=== PATIENT | female | born 1980 | race Caucasian/White ===

== ENCOUNTER 2019-10-07 09:09 | Emergency (ER) | payer OTHER ==
[~2019-10-07] VITALS: Ht 149.9 cm; Wt 84.9 kg
[2019-10-07 09:17] VITALS: Ht 149.9 cm; Wt 84.9 kg
[2019-10-07 11:02] LABS: UA SPECIFIC GRAVITY 1.025 (1.005-1.035); urine erythrocyte NEGATIVE (NEGATIVE)
[2019-10-07 12:28] LABS: CARBON DIOXIDE 26.9 mmol/L (21-32); CHLORIDE SERUM 106 mmol/L (98-107); CREATININE SERUM 0.7 mg/dL (0.6-1.0); GFR1 > 60 mL/min; GLUCOSE SERUM 82 mg/dL (74-106); POTASSIUM SERUM 3.7 mmol/L (3.5-5.1); SODIUM SERUM 141 mmol/L (136-145)
[2019-10-07 12:42] LABS: microscopic required? YES
[2019-10-07 12:44] LABS: ALBUMIN 3.3 g/dL (3.4-5.0); ALKALINE PHOSPHATASE 88 U/L (46-116); ALT/SGPT 20 U/L (14-59); AST/SGOT 12 U/L (15-37); BILIRUBIN TOTAL 0.3 mg/dL (0.20-1.00); CHOLESTEROL 225 mg/dL (<200); TOTAL PROTEIN, SERUM 7.3 g/dL (6.4-8.2); TRIGLYCERIDES 155 mg/dL (<150)
[2019-10-07 12:45] LABS: CHOLESTEROL/HDL RATIO 4.4; HDL CHOLESTEROL 51 mg/dL (40-60)
[2019-10-07 13:15] LABS: BASOPHIL % 0.4 % (0-2); PLATELET COUNT 254 x10^3mcL (130-400); RED CELL DISTRIBUTION WIDTH 14.4 % (11.5-14.5)
[2019-10-07 13:48] VITALS: BP 138/68
== END 2019-10-07 13:48 | disposition home or self-care (01) ==
LOC: ED 09:09
PROVIDERS: Specialist
DX: N39.0 Urinary tract infection, site not specified (principal); I10 Essential (primary) hypertension; Z90.49 Acquired absence of other specified parts of digestive tract; Z87.442 Personal history of urinary calculi; Z88.8 Allergy status to other drugs, medicaments and biological substances
CPT/HCPCS: 36415